=== PATIENT | female | born 1995 | race Two or more races ===

== ENCOUNTER 2023-11-17 20:36 | Emergency (ER) | payer OTHER ==
[~2023-11-17] VITALS: Ht 160 cm; Wt 60.3 kg
[2023-11-17] MEDS ORDERED: KETOROLAC TROMETHAMINE 15 MG VIAL IV STA (21:06)
[2023-11-17] MEDS ORDERED: CIPROFLOXACIN IN 5 % DEXTROSE 400 MG/200 ML PIGGYBAG IV STA (21:06)
[2023-11-17] MEDS ORDERED: KETOROLAC TROMETHAMINE 30 MG VIAL ONE (21:30)
[2023-11-17] MEDS ORDERED: CIPROFLOXACIN IN 5 % DEXTROSE 400 MG/200 ML PIGGYBAG IV ONE (21:30)
[2023-11-17 21:35] LABS: HEMATOCRIT 35.5 % (36.0-45.00); MEAN CELL VOLUME 91.8 fL (80.00-100.00); MEAN CORPUSCULAR HEMOGLOBIN 31.1 pg (27.00-32.0); MEAN CORPUSCULAR HGB CONC 33.9 g/dl (32.0-36.0); PLATELET COUNT 232 K/uL (150-450); RED BLOOD COUNT 3.87 M/uL (4.00-6.00); RED CELL DISTRIBUTION WIDTH 14.6 % (11.5-14.5)
[2023-11-17 22:00] LABS: URINE APPEARANCE Cloudy; URINE BILIRRUBIN Negative (NEGATIVE); URINE BLOOD Large; URINE COLOR Yellow; URINE GLUCOSE Negative (NEGATIVE); URINE LEUKOCYTE Large; URINE NITRATE Negative
[2023-11-17 22:03] LABS: URINE EPITHELIAL CELLS 3.4 uL (0.0-38.8); URINE RBC 3550.8 uL (0.0-20.8)
[2023-11-17 22:04] LABS: URINE KETONE 40 (NEGATIVE); URINE PROTEIN 100 (NEGATIVE)
== END 2023-11-17 22:28 | disposition home or self-care (01) ==
LOC: ER 20:36
DX: N39.0 Urinary tract infection, site not specified (principal); Z91.013 Allergy to seafood

== ENCOUNTER 2023-11-25 14:34 | Outpatient (CLI) | payer OTHER | END 2023-11-25 14:47 | disposition home or self-care (01) | LOC: SONOGRAMA 14:34 | DX: R10.2 Pelvic and perineal pain (principal) ==